=== PATIENT | female | born 1975 | race Caucasian/White ===

== ENCOUNTER → 2016-08-02 | Outpatient (CLI) | payer OTHER ==
[~2016-08-02] VITALS: Ht 170.2 cm; Wt 65.8 kg
[~2016-08-02] MED LIST: LEVO88TA3 PO; LIDOCAINE 2% INJ 100 MG/5 ML SDV (FOR ANES.) As Ordered ONE; PROPOFOL 200 MG/20 ML VIAL As Ordered ONE; YAZ3TAB PO; ePHEDrine SULFATE 25 MG/5 ML(5MG/ML) SYRINGE As Ordered ONE; fentaNYL 100 MCG/2 ML INJECTION (J3010) As Ordered ONE
--- NOTE | 2016-08-02 12:13 | ROOR ---
Patient Name: Ruby Long Procedure Date: 08/02/2016 11:57 AM Date of : 1975 Age: 41 Room: [facility] Gender: Female Note Status: Finalized Procedure: Upper GI endoscopy Indications: Epigastric abdominal pain, Functional Dyspepsia, Nausea Providers: Toño LUEVANO MD Referring MD: CLEMENCIA FUENTES MD Requesting Provider: Medicines: Monitored Anesthesia Care Complications: No immediate complications. Procedure: Pre-Anesthesia Assessment: - The heart rate, respiratory rate, oxygen saturations, blood pressure, adequacy of pulmonary ventilation, and response to care were monitored throughout the procedure. The Endoscope was introduced through the mouth, and advanced to the second part of duodenum. The upper GI endoscopy was accomplished without difficulty. The patient tolerated the procedure well. Findings: The esophagus was normal. The stomach was normal. (relatively large volume) The examined duodenum was normal. Biopsies for histology were taken with a cold forceps for evaluation of celiac disease. Impression: - Normal esophagus. - Normal stomach. - Normal examined duodenum. Biopsied. Recommendation: - Await pathology results. - Telephone endoscopist for pathology results in 2 weeks. Toño Luevano MD Toño LUEVANO MD 08/02/2016 12:13:40 PM This report has been signed electronically. Number of Addenda: 0 Note Initiated On: 08/02/2016 11:57 AM Estimated Blood Loss: Estimated blood loss: none.
--- NOTE | 2016-08-02 12:36 | ROOR ---
Patient Name: Ruby Long Procedure Date: 08/02/2016 11:59 AM Date of : 1975 Age: 41 Room: [facility] Gender: Female Note Status: Finalized Procedure: Colonoscopy Indications: Generalized abdominal pain, Clinically significant diarrhea of unexplained origin, Change in bowel habits Providers: Toño LUEVANO MD Referring MD: CLEMENCIA FUENTES MD Requesting Provider: Medicines: Monitored Anesthesia Care Complications: No immediate complications. Procedure: Pre-Anesthesia Assessment: - The heart rate, respiratory rate, oxygen saturations, blood pressure, adequacy of pulmonary ventilation, and response to care were monitored throughout the procedure. The Colonoscope was introduced through the anus and advanced to 8 cm into the ileum. The colonoscopy was performed without difficulty. The patient tolerated the procedure well. The quality of the bowel preparation was good. Findings: The perianal and digital rectal examinations were normal. (Exam: Complete, Prep: Good or Excellent.) The terminal ileum appeared normal. The colon (entire examined portion) was redundant. Small Internal Hemorrhoids. The entire examined colon appeared normal on direct and retroflexion views. Biopsies for histology were taken with a cold forceps from the entire colon for evaluation of microscopic colitis. Impression: - (Exam: Complete, Prep: Good or Excellent.) - The perianal examination was normal. - The examined portion of the ileum was normal. - The entire colon is normal on direct and retroflexion views. - Redundant colon. - Small Internal Hemorrhoids. - Biopsies were taken with a cold forceps from the entire colon for evaluation of microscopic colitis. - (Irritable Bowel Syndrome/IBS suspected.) Recommendation: - Await pathology results. - Telephone endoscopist for pathology results in 2 weeks. - -Consider trial on hyoscyamine or dicyclomine PRN for IBS. Please let me know in 2 weeks. -Dairy intolerance may present with IBS type symptoms. Consider holding off on dairy products for 10 days. - Your gallbladder is normal both in anatomy and in function (Ultrasound and HIDA). Your symptoms are not related to gallbladder issues. Toño Luevano MD Toño LUEVANO MD 08/02/2016 12:36:19 PM This report has been signed electronically. Number of Addenda: 0 Note Initiated On: 08/02/2016 11:59 AM Estimated Blood Loss: Estimated blood loss: none.
[2016-08-02 12:56] VITALS: BP 116/69
== END ==
LOC: M OPP 10:06
PROVIDERS: ATTEND Internal Medicine Gastroenterology
DX: R10.84 Generalized abdominal pain (principal); R19.7 Diarrhea, unspecified; R19.4 Change in bowel habit; Q43.8 Other specified congenital malformations of intestine; K64.8 Other hemorrhoids; R10.13 Epigastric pain; R11.0 Nausea; E03.9 Hypothyroidism, unspecified; Z80.0 Family history of malignant neoplasm of digestive organs; Z88.1 Allergy status to other antibiotic agents; Z91.013 Allergy to seafood; Z91.02 Food additives allergy status; Z79.899 Other long term (current) drug therapy; Z79.3 Long term (current) use of hormonal contraceptives
CPT/HCPCS: 43239; 45380; 88305; J3010

== ENCOUNTER → 2016-09-25 | Outpatient (REF) | payer OTHER ==
[~2016-09-25] MED LIST changes: -LIDOCAINE 2% INJ 100 MG/5 ML SDV (FOR ANES.) As Ordered ONE; -PROPOFOL 200 MG/20 ML VIAL As Ordered ONE; -ePHEDrine SULFATE 25 MG/5 ML(5MG/ML) SYRINGE As Ordered ONE; -fentaNYL 100 MCG/2 ML INJECTION (J3010) As Ordered ONE
[2016-09-25 11:31] LABS: MEAN CORPUSCULAR HEMOGLOBIN 31.7 pg (27.0-33.0); MEAN CORPUSCULAR HGB CONC 34.8 g/dl (32.0-36.5); MEAN CORPUSCULAR VOLUME 91.1 fl (80.0-96.0); RED CELL DISTRIBUTION WIDTH 12.7 % (11.5-14.5); WHITE BLOOD COUNT 4.9 K/mm3 (4.0-10.0)
[2016-09-25 12:36] LABS: ALBUMIN 3.5 GM/DL (3.2-5.2); ALBUMIN/GLOBULIN RATIO 1.06 (1.00-1.93); ALKALINE PHOSPHATASE 32 U/L (45-117); ALT/SGPT 9 U/L (12-78); ANION GAP 10 MEQ/L (8-16); AST/SGOT 12 U/L (15-37); BILIRUBIN,TOTAL 0.6 MG/DL (0.2-1.0); BLOOD UREA NITROGEN 7 MG/DL (7-18); CALCIUM LEVEL 8.5 MG/DL (8.5-10.1); CARBON DIOXIDE LEVEL 27 MEQ/L (21-32); CHLORIDE LEVEL 106 MEQ/L (98-107); CHOLESTEROL LEVEL 186 MG/DL (<200); CREATININE FOR GFR 0.87 MG/DL (0.55-1.02); GLOMERULAR FILTRATION RATE > 60.0 (>58); GLUCOSE, FASTING 90 MG/DL (70-105); SODIUM LEVEL 143 MEQ/L (136-145); TOTAL PROTEIN 6.8 GM/DL (6.4-8.2); TRIGLYCERIDES LEVEL 141 MG/DL (<150)
== END ==
LOC: M SFHCLERA 10:10
PROVIDERS: ATTEND Family Medicine
DX: Z13.220 Encounter for screening for lipoid disorders (principal); Z13.1 Encounter for screening for diabetes mellitus; E03.9 Hypothyroidism, unspecified

== ENCOUNTER → 2016-12-06 | Outpatient (REF) | payer OTHER | LOC: M SFHCWAGY 09:29 | PROVIDERS: ATTEND Family Medicine | DX: Z12.4 Encounter for screening for malignant neoplasm of cervix (principal) ==

== ENCOUNTER → 2017-03-20 | Outpatient (REF) | payer OTHER ==
[~2017-03-20] MED LIST changes: +YAZ1TAB PO; -YAZ3TAB PO
== END ==
LOC: M LAB REF 09:47
PROVIDERS: ATTEND Physician Assistant
DX: H60.311 Diffuse otitis externa, right ear (principal); J02.9 Acute pharyngitis, unspecified

== ENCOUNTER → 2017-07-20 | Outpatient (CLI) | payer OTHER | LOC: M LRY 17:39 | DX: J40 Bronchitis, not specified as acute or chronic (principal) | CPT/HCPCS: 71046; 87804 ==

== ENCOUNTER → 2017-12-02 | Outpatient (REF) | payer OTHER | LOC: M SFHCLERA 17:16 | DX: Z00.00 Encounter for general adult medical examination without abnormal findings (principal); E03.9 Hypothyroidism, unspecified ==

== ENCOUNTER → 2018-02-20 | Outpatient (REF) | payer OTHER | LOC: M SFHCWAGY 12:00 | DX: Z12.4 Encounter for screening for malignant neoplasm of cervix (principal) | CPT/HCPCS: G0123 ==

== ENCOUNTER → 2018-04-08 | Outpatient (REF) | payer OTHER | LOC: M LAB REF 18:32 | DX: L57.0 Actinic keratosis (principal) | CPT/HCPCS: 88305 ==

== ENCOUNTER → 2018-11-25 | Outpatient (CLI) | payer OTHER ==
--- NOTE | 2018-11-26 02:28 | REP ---
Clinical: History of congenital hip dysplasia leg length discrepancy. 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 Acetabula and femoral heads demonstrate normal contours. Surrounding soft tissues are unremarkable. 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 Electronically Signed by Damir Lucas MD 11/26/2018 02:19 A
== END ==
LOC: M LRY 10:03
PROVIDERS: ATTEND Family Medicine
DX: M21.70 Unequal limb length (acquired), unspecified site (principal); M16.0 Bilateral primary osteoarthritis of hip
CPT/HCPCS: 73502; 84443; G0463

== ENCOUNTER → 2018-11-25 | Outpatient (REF) | payer OTHER | LOC: M SFHCLERA 09:44 | PROVIDERS: ATTEND Family Medicine | DX: E03.9 Hypothyroidism, unspecified (principal) ==

== ENCOUNTER → 2019-12-08 | Outpatient (REF) | payer OTHER ==
[2019-12-08 17:21] LABS: BLOOD UREA NITROGEN 9 MG/DL (7-18); CALCIUM LEVEL 8.4 MG/DL (8.5-10.1); CARBON DIOXIDE LEVEL 28 MEQ/L (21-32); CHLORIDE LEVEL 109 MEQ/L (98-107); CREATININE FOR GFR 0.69 MG/DL (0.55-1.30); GLOMERULAR FILTRATION RATE > 60.0 (>58); GLUCOSE, FASTING 87 MG/DL (70-100); POTASSIUM SERUM 4.2 MEQ/L (3.5-5.1); SODIUM LEVEL 142 MEQ/L (136-145); THYROID STIMULATING HORMONE 0.335 uIU/ML (0.358-3.740)
[2019-12-08 17:39] LABS: BASO % 0.6 % (0.0-1.0); EOS # 0.2 10^3/uL (0.0-0.5); EOS % 3.1 % (0.0-3.0); HEMATOCRIT 41.3 % (36.0-47.0); HEMOGLOBIN 13.7 g/dl (12.0-15.5); LYMPH # 1.9 10^3/uL (1.5-5.0); LYMPH % 26.9 % (24.0-44.0); MEAN CORPUSCULAR HEMOGLOBIN 30.9 pg (27.0-33.0); MEAN CORPUSCULAR HGB CONC 33.2 g/dl (32.0-36.5); MEAN CORPUSCULAR VOLUME 93.2 fl (80.0-96.0); MONO # 0.8 10^3/uL (0.0-0.8); MONO % 11.4 % (0.0-5.0); NEUTROPHILS # 4.1 10^3/uL (1.5-8.5); NEUTROPHILS % 57.7 % (36.0-66.0); PLATELET COUNT, AUTOMATED 165 10^3/uL (150-450); RED BLOOD COUNT 4.43 10^6/uL (4.00-5.40)
== END ==
LOC: M SFHCLERA 15:15
PROVIDERS: ATTEND Family Medicine
DX: E03.9 Hypothyroidism, unspecified (principal)
CPT/HCPCS: 36415; 80048; 84443; 85025; G0463

== ENCOUNTER → 2020-07-24 | Outpatient (CLI) | payer SELFPAY | LOC: M LABSMTC 13:09 | PROVIDERS: ATTEND Pediatrics | DX: Z20.822 Contact with and (suspected) exposure to COVID-19 (principal) ==

== ENCOUNTER → 2020-08-16 | Outpatient (CLI) | payer OTHER | LOC: M WUC 15:50 | PROVIDERS: ATTEND Family Medicine | DX: E03.9 Hypothyroidism, unspecified (principal) ==

== ENCOUNTER → 2021-09-01 | Outpatient (CLI) | payer OTHER | LOC: M PLALAB 14:13 → M LAB 14:13 | PROVIDERS: ATTEND Family Medicine | DX: E03.9 Hypothyroidism, unspecified (principal) ==

== ENCOUNTER → 2022-04-12 | Outpatient (CLI) | payer OTHER | LOC: M LAB 09:56 | PROVIDERS: ATTEND Family Medicine | DX: Z13.1 Encounter for screening for diabetes mellitus (principal) ==

== ENCOUNTER → 2022-05-30 | Outpatient (CLI) | payer OTHER ==
[2022-05-30 10:01] LABS: BASO % 0.7 % (0.0-1.0); EOS # 0.2 10^3/uL (0.0-0.5); EOS % 3.5 % (0.0-3.0); HEMATOCRIT 41.1 % (36.0-47.0); HEMOGLOBIN 13.5 g/dl (12.0-15.5); LYMPH # 1.9 10^3/uL (1.5-5.0); MEAN CORPUSCULAR HEMOGLOBIN 30.7 pg (27.0-33.0); MEAN CORPUSCULAR HGB CONC 32.8 g/dl (32.0-36.5); MEAN CORPUSCULAR VOLUME 93.4 fl (80.0-96.0); MONO # 0.7 10^3/uL (0.0-0.8); MONO % 12.2 % (2.0-8.0); NEUTROPHILS # 2.8 10^3/uL (1.5-8.5); NEUTROPHILS % 50.2 % (36.0-66.0); PLATELET COUNT, AUTOMATED 189 10^3/uL (150-450); WHITE BLOOD COUNT 5.6 10^3/uL (4.0-10.0)
[2022-05-30 10:44] LABS: ALBUMIN 3.5 G/DL (3.2-5.2); ALT/SGPT 8.99999 U/L (7.0-40); BILIRUBIN,TOTAL 0.4 MG/DL (0.3-1.2); BLOOD UREA NITROGEN 9 MG/DL (9-23); CALCIUM LEVEL 9.5 MG/DL (8.5-10.1); CARBON DIOXIDE LEVEL 27 MMOL/L (20-31); CHLORIDE LEVEL 106 MMOL/L (98-107); CHOLESTEROL LEVEL 189 MG/DL (<200); CHOLESTEROL RISK RATIO 3.78 (<5); CREATININE FOR GFR 0.77 MG/DL (0.55-1.30); FREE T4 1.27 NG/DL (0.89-1.76); GLOMERULAR FILTRATION RATE > 60.0 (>58); GLUCOSE, FASTING 95 MG/DL (60-100); LDL CHOLESTEROL 92.6 MG/DL (<100); NON-HDL-C 139 MG/DL; POTASSIUM SERUM 4.4 MMOL/L (3.5-5.1); SODIUM LEVEL 141 MMOL/L (136-145); THYROID STIMULATING HORMONE 2.117 uIU/ML (0.55-4.78); TOTAL 25(OH) VITAMIN D 27.3 NG/ML (20.0-100.0); TOTAL PROTEIN 6.5 G/DL (5.7-8.2); TRIGLYCERIDES LEVEL 232 MG/DL (<150)
== END ==
LOC: M LAB 09:18
PROVIDERS: ATTEND Nurse Practitioner Adult Health
DX: E03.9 Hypothyroidism, unspecified (principal); Z13.220 Encounter for screening for lipoid disorders; Z13.228 Encounter for screening for other metabolic disorders; Z13.29 Encounter for screening for other suspected endocrine disorder

== ENCOUNTER 2022-09-12 19:45 | Emergency (ER) | payer OTHER ==
[~2022-09-12] VITALS: Ht 170.2 cm; Wt 74.7 kg
[2022-09-12] MEDS ORDERED: BACT800T5 PO (23:34)
[2022-09-12] MEDS ORDERED: METR-265 PO (23:34)
[2022-09-12] MEDS ORDERED: BACTRIM 160MG/800MG DS TAB PO ONE (23:35)
[2022-09-12] MEDS ORDERED: metroNIDAZOLE (FLAGYL) 500MG TABLET PO ONE (23:35)
[2022-09-12 23:44] VITALS: BP 122/75
== END 2022-09-12 23:54 | disposition home or self-care (01) ==
LOC: M ED 19:45
DX: L02.215 Cutaneous abscess of perineum (principal); E03.9 Hypothyroidism, unspecified; Z79.3 Long term (current) use of hormonal contraceptives; Z79.899 Other long term (current) drug therapy; Z88.0 Allergy status to penicillin; Z88.8 Allergy status to other drugs, medicaments and biological substances; Z91.013 Allergy to seafood

== ENCOUNTER 2023-01-10 10:11 | Day surgery (SDC) | payer OTHER ==
[~2023-01-10] VITALS: Ht 170.2 cm; Wt 72.1 kg
[~2023-01-10 10:11] MED LIST changes: +BACT800T5 PO; +LEVO75TA4 PO; +METR-265 PO; +NS 1,000 ML IV ONE
[2023-01-10] MEDS ORDERED: propofoL 200 MG/20 ML VIAL As Ordered ONE (11:29)
[2023-01-10 12:31] VITALS: BP 110/66; TEMP 97.7; O2SAT 100
== END 2023-01-10 12:31 | disposition home or self-care (01) ==
LOC: M OPP 10:11
PROVIDERS: ATTEND Internal Medicine Gastroenterology
DX: Z12.11 Encounter for screening for malignant neoplasm of colon (principal); Z80.0 Family history of malignant neoplasm of digestive organs; K64.8 Other hemorrhoids; Z79.3 Long term (current) use of hormonal contraceptives; Z79.890 Hormone replacement therapy; Z88.1 Allergy status to other antibiotic agents; Z88.8 Allergy status to other drugs, medicaments and biological substances; Z91.013 Allergy to seafood

== ENCOUNTER → 2023-02-19 | Outpatient (REF) | payer OTHER ==
[~2023-02-19] MED LIST changes: -NS 1,000 ML IV ONE
[2023-02-19 17:34] LABS: FREE T4 1.15 NG/DL (0.89-1.76); THYROID STIMULATING HORMONE 5.542 uIU/ML (0.55-4.78)
== END ==
LOC: M LAB REF 16:41 → M WUC 16:41
PROVIDERS: ATTEND Nurse Practitioner Adult Health
DX: E03.9 Hypothyroidism, unspecified (principal)

== ENCOUNTER → 2023-03-31 | Outpatient (CLI) | payer OTHER | LOC: M RAD 09:43 | PROVIDERS: ATTEND Physician Assistant | DX: R22.41 Localized swelling, mass and lump, right lower limb (principal) ==

== ENCOUNTER → 2023-05-08 | Outpatient (CLI) | payer OTHER | LOC: M PLAIMG 06:39 | DX: M19.071 Primary osteoarthritis, right ankle and foot (principal) ==

== ENCOUNTER 2023-06-13 10:22 | Emergency (ER) | payer OTHER ==
[~2023-06-13] VITALS: Ht 170.2 cm; Wt 70.5 kg
[2023-06-13 13:14] LABS: BASO % 0.5 % (0.0-1.0); EOS # 0.1 10^3/uL (0.0-0.5); EOS % 0.8 % (0.0-3.0); HEMATOCRIT 41.5 % (36.0-47.0); LYMPH # 1.8 10^3/uL (1.5-5.0); LYMPH % 29.2 % (24.0-44.0); MEAN CORPUSCULAR HEMOGLOBIN 31.5 pg (27.0-33.0); MEAN CORPUSCULAR HGB CONC 33.7 g/dl (32.0-36.5); MEAN CORPUSCULAR VOLUME 93.3 fl (80.0-96.0); MONO # 0.6 10^3/uL (0.0-0.8); MONO % 9.4 % (2.0-8.0); NEUTROPHILS # 3.6 10^3/uL (1.5-8.5); NEUTROPHILS % 59.8 % (36.0-66.0); PLATELET COUNT, AUTOMATED 180 10^3/uL (150-450); RED BLOOD COUNT 4.45 10^6/uL (4.00-5.40); WHITE BLOOD COUNT 6.1 10^3/uL (4.0-10.0)
[2023-06-13 13:33] LABS: ALBUMIN 3.7 G/DL (3.2-5.2); ALKALINE PHOSPHATASE 34 U/L (46-116); ALT/SGPT < 9 U/L (7.0-40); AST/SGOT 17 U/L (<34); BILIRUBIN,DIRECT 0.1 MG/DL (<0.4); BILIRUBIN,TOTAL 0.5 MG/DL (0.3-1.2); BLOOD UREA NITROGEN 8 MG/DL (9-23); CALCIUM LEVEL 8.9 MG/DL (8.5-10.1); CARBON DIOXIDE LEVEL 24 MMOL/L (20-31); CHLORIDE LEVEL 105 MMOL/L (98-107); CREATININE FOR GFR 0.72 MG/DL (0.55-1.30); GLOMERULAR FILTRATION RATE > 60.0 (>58); GLUCOSE, FASTING 91 MG/DL (60-100); MAGNESIUM LEVEL 1.8 MG/DL (1.8-2.4); POTASSIUM SERUM 3.8 MMOL/L (3.5-5.1); SODIUM LEVEL 139 MMOL/L (136-145); TOTAL PROTEIN 7.2 G/DL (5.7-8.2)
[2023-06-13 13:35] LABS: FOLATE 19.21 NG/ML (>5.4); FREE T4 1.52 NG/DL (0.89-1.76); THYROID STIMULATING HORMONE 2.521 uIU/ML (0.55-4.78)
[2023-06-13 13:36] LABS: VITAMIN B12 LEVEL 698 PG/ML (211-911)
[2023-06-13 18:13] VITALS: BP 124/81; TEMP 99.1; O2SAT 99
== END 2023-06-13 18:16 | disposition home or self-care (01) ==
LOC: M ED 10:22
DX: Q07.00 Arnold-Chiari syndrome without spina bifida or hydrocephalus (principal); E03.9 Hypothyroidism, unspecified; Z88.1 Allergy status to other antibiotic agents; Z79.890 Hormone replacement therapy

== ENCOUNTER → 2023-11-13 | Outpatient (CLI) | payer OTHER | LOC: M WHC 12:43 | PROVIDERS: ATTEND Nurse Practitioner Adult Health | DX: R10.31 Right lower quadrant pain (principal) ==

== ENCOUNTER → 2024-05-20 | Outpatient (CLI) | payer OTHER ==
[~2024-05-20] MED LIST changes: +PROHANCE 279.3MG/ML 15ML VIAL ONE
== END ==
LOC: M PLAIMG 12:32
PROVIDERS: ATTEND Family Medicine
DX: R10.30 Lower abdominal pain, unspecified (principal)

== ENCOUNTER → 2024-06-18 | Outpatient (CLI) | payer OTHER ==
[~2024-06-18] MED LIST changes: -PROHANCE 279.3MG/ML 15ML VIAL ONE
== END ==
LOC: M PLARAD 10:52
PROVIDERS: ATTEND Family Medicine
DX: R10.30 Lower abdominal pain, unspecified (principal)

== ENCOUNTER → 2025-05-26 | Outpatient (CLI) | payer OTHER | LOC: M RAD 07:35 | PROVIDERS: ATTEND Family Medicine | DX: M54.14 Radiculopathy, thoracic region (principal); R07.9 Chest pain, unspecified ==

== ENCOUNTER 2025-06-13 10:32 | Emergency (ER) | payer OTHER ==
[~2025-06-13] VITALS: Ht 170.2 cm; Wt 75.0 kg
[2025-06-13 10:37] VITALS: BP 135/72
[2025-06-13 11:17] LABS: BASO # 0.1 10^3/uL (0.0-0.2); BASO % 0.7 % (0.0-1.0); EOS # 0.1 10^3/uL (0.0-0.5); EOS % 0.7 % (0.0-3.0); LYMPH # 1.5 10^3/uL (1.5-5.0); LYMPH % 20.5 % (24.0-44.0); MONO # 0.8 10^3/uL (0.0-0.8); MONO % 11.5 % (2.0-8.0); NEUTROPHILS # 4.7 10^3/uL (1.5-8.5); NEUTROPHILS % 66.2 % (36.0-66.0); PLATELET COUNT, AUTOMATED 203 10^3/uL (150-450)
[2025-06-13 11:40] LABS: INR 0.92
[2025-06-13 11:51] LABS: ALT/SGPT 10 U/L (7.0-40); AST/SGOT 19 U/L (<34); CALCIUM LEVEL 8.9 MG/DL (8.5-10.1); CARBON DIOXIDE LEVEL 25 MMOL/L (20-31); CHLORIDE LEVEL 104 MMOL/L (98-107); CK-MB VALUE MASS < 1.0 NG/ML (<3.6); CREATININE FOR GFR 0.72 MG/DL (0.55-1.30); GLOMERULAR FILTRATION RATE > 90.0 (>51); POTASSIUM SERUM 3.9 MMOL/L (3.5-5.1); SODIUM LEVEL 138 MMOL/L (136-145)
[2025-06-13 11:52] LABS: FREE T4 1.25 NG/DL (0.89-1.76)
[2025-06-13 11:53] LABS: CPK CREATINE PHOSPHOKINASE 41 U/L (34-145)
[2025-06-13 12:48] LABS: CK-MB VALUE MASS < 1.0 NG/ML (<3.6)
[2025-06-13 12:53] LABS: CPK CREATINE PHOSPHOKINASE 38 U/L (34-145)
[2025-06-13 13:47] VITALS: TEMP 96.3; O2SAT 99
== END 2025-06-13 13:56 | disposition home or self-care (01) ==
LOC: M ED 10:32
DX: R00.2 Palpitations (principal); R07.89 Other chest pain; R00.1 Bradycardia, unspecified; I45.10 Unspecified right bundle-branch block; F10.10 Alcohol abuse, uncomplicated; Z88.8 Allergy status to other drugs, medicaments and biological substances; Z91.013 Allergy to seafood; Z79.899 Other long term (current) drug therapy